=== PATIENT | female | born 1955 | race Caucasian/White ===

== ENCOUNTER 2021-06-01 13:29 | Outpatient (CLI) | payer MEDICARE | END 2021-06-01 13:30 | disposition home or self-care (01) | LOC: CSHCT 13:29 | PROVIDERS: ATTEND Specialist | DX: T82.120A Displacement of cardiac electrode, initial encounter (principal); Z95.0 Presence of cardiac pacemaker; K44.9 Diaphragmatic hernia without obstruction or gangrene | CPT/HCPCS: 71260 ==

== ENCOUNTER → 2021-08-18 | Outpatient (CLI) | payer MEDICARE | LOC: CSHMRI 08-16 14:31 | PROVIDERS: ATTEND Orthopaedic Surgery | DX: M48.061 Spinal stenosis, lumbar region without neurogenic claudication (principal); Z95.0 Presence of cardiac pacemaker; M47.816 Spondylosis without myelopathy or radiculopathy, lumbar region | CPT/HCPCS: 71045; 72148 ==